=== PATIENT | female | born 1955 | race Caucasian/White ===

== ENCOUNTER 2018-12-27 13:38 | Emergency (ER) | payer MEDICARE, OTHER ==
[~2018-12-27] VITALS: Ht 157.5 cm; Wt 99.8 kg
--- OUTSIDE RECORDS SUMMARY | 2018-12-27 13:41 | XMS REPORT | Continuity of Care Document ---
Author Author [facility] Organization [facility] Address Unknown Phone Unavailable Care Team Providers Care Cook Station Name Role Phone [facility] Unavailable Unavailable Problems Problem Status Onset Date Classification Date Reported Comments Source Localized edema 08/01/2017 11/02/2017 [facility] [place] 782.3 - EDEMA Active 07/27/2017 [place] Pain in left leg 11/02/2017 [facility] [place] Pain in right leg 11/02/2017 [facility] Medications No Data Provided for This Section Allergies, Adverse Reactions, Alerts No Known Medication Allergies Immunizations No Data Provided for This Section Results No Data Provided for This Section Pathology Reports No Data Provided for This Section Diagnostic Reports Report Value Date Source Ext Lower Venous Doppler Bilat US EXAM: US BILATERAL LOWER EXTREMITY VENOUS DOPPLER DATE: 07/27/2017 2:19 PM [facility] INDICATION: - R60.9 Edema, unspecified, M79.605 Pain in left leg, M79.604 Pain in right leg. Bilateral lower leg swelling for 2 days with no trauma. Burning sensation with pitting edema. ADDITIONAL INFORMATION: None. COMPARISON: None. TECHNIQUE: Multiplanar grayscale, color Doppler and spectral Doppler ultrasound images of the bilateral lower extremity veins. FINDINGS: Right Thigh Veins: Common Femoral: Patent. Femoral (SFV): Patent. Popliteal: Patent. Proximal Greater Saphenous: Patent. Deep Femoral Veins: Patent. Right Calf Veins: Slightly limited visualization Paired Peroneal: Patent. Posterior Tibial Calf: Patent. Left Thigh Veins: Common Femoral: Patent. Femoral (SFV): Patent. Popliteal: Patent. Proximal Greater Saphenous: Patent. Deep Femoral Veins: Patent. Left Calf Veins: Slightly limited visualization Paired Peroneal: Patent. Posterior Tibial Calf: Patent. IMPRESSION: No deep venous thrombosis (DVT). Soft tissue edema is seen within the calves. Findings were discussed with Dr. Levi--Dao by telephone on 07/27/2017 at 1400 hours. 07/27/2017 [facility] Consultation Notes No Data Provided for This Section Discharge Summaries No Data Provided for This Section History and Physicals No Data Provided for This Section Vital Signs No Data Provided for This Section Encounters Location Location Details Encounter Type Encounter Number Reason For Visit Attending Provider ADM Date DC Date Status Source [facility] [id number] Non Physician 07/27/2017 07/28/2017 [facility] Procedures No Data Provided for This Section Assessment and Plan No Data Provided for This Section Plan of Care No Data Provided for This Section Social History Social History Date Source No data available for this section 07/28/2017 [facility] Family History No Data Provided for This Section Advance Directives No Data Provided for This Section Functional Status No Data Provided for This Section
--- OUTSIDE RECORDS SUMMARY | 2018-12-27 13:41 | XMS REPORT | Clinical Summary ---
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 Active glimepiride (AMARYL) 4 MG Take 4 mg by 0 tablet mouth daily before breakfast. Active metoprolol succinate XL Take 50 mg by 0 (TOPROL-XL) 50 mg 24 hr mouth daily. tablet Active insulin detemir U-100 Inject under 0 (LEVEMIR) 100 unit/mL the skin injection nightly. Active insulin lispro (HumaLOG) Inject 0-5 0 100 unit/mL injection Units under the skin 3 (three) times a day before meals. Active pravastatin (PRAVACHOL) Take 20 mg by 0 20 MG tablet mouth nightly. 06/06/2019 Active meloxicam (MOBIC) 15 mg Take 1 tablet 30 tablet 0 tabletIndications: Acute (15 mg total) 8 bilateral low back pain, by mouth with sciatica presence daily. unspecified, Degeneration of lumbar intervertebral disc, Pain of both hip joints, Trochanteric bursitis of both hips 06/05/2018 Discontinued meloxicam (MOBIC) 15 mg Take 1 tablet 30 tablet 0 tabletIndications: Acute (15 mg total) 8 bilateral low back pain, by mouth with sciatica presence daily. unspecified, Degeneration of lumbar intervertebral disc, Pain of both hip joints, Trochanteric bursitis of both hips Active Problems No known active problems Encounters Care Team Description Date Type Specialty Price Woodward MD Trochanteric bursitis of left hip (Primary Dx); Pain of left hip joint; Pain of right hip joint 08/07/2018 Office Visit Orthopedic Surgery Price Woodward MD Trochanteric bursitis of left hip (Primary Dx); Pain of left hip joint 07/05/2018 Office Visit Orthopedic Surgery Price Woodward MD Trochanteric bursitis of left hip (Primary Dx); Pain of left hip joint; Degeneration of lumbar intervertebral disc; Spondylolisthesis of lumbar region 06/12/2018 Office Visit Orthopedic Surgery Price Woodward MD Acute bilateral low back pain, with sciatica presence unspecified; Degeneration of lumbar intervertebral disc; Pain of both hip joints; Trochanteric bursitis of both hips 06/05/2018 Refill Orthopedic Surgery Price Woodward MD Degeneration of lumbar intervertebral disc (Primary Dx); SI (sacroiliac) pain; Spondylolisthesis of lumbar region; Trochanteric bursitis of left hip; Pain of left hip joint 05/28/2018 Office Visit Orthopedic Surgery Price Woodward MD Acute bilateral low back pain, with sciatica presence unspecified (Primary Dx); Degeneration of lumbar intervertebral disc; Pain of both hip joints; Trochanteric bursitis of both hips; Spondylolisthesis of lumbar region 05/07/2018 Office Visit Orthopedic Surgery after 12/26/2017 Family History Medical History Relation Name Comments Arthritis Mother Cancer Mother Heart disease Mother Relation Name Status Comments Mother Social History Date Tobacco Use Types Packs/Day Years Used Never Smoker Smokeless Tobacco: Never Used Alcohol Use Drinks/Week oz/Week Comments No Sex Assigned at Date Recorded Not on file Industry Job Start Date Occupation Not on file Not on file Not on file Travel End Travel History Travel Start No recent travel history available. Last Filed Vital Signs Time Taken Vital Sign Reading 05/07/2018 9:44 AM [employer] Blood Pressure 130/62 - Pulse - - Temperature - - Respiratory Rate - - Oxygen Saturation - - Inhaled Oxygen - Concentration 05/07/2018 9:44 AM [employer] Weight 99.8 kg (220 lb) 05/07/2018 9:44 AM [employer] Height 157.5 cm (5' 2") 05/07/2018 9:44 AM [employer] Body Mass Index 40.24 Plan of Treatment Health Maintenance Due Date Last Done Comments BREAST CANCER SCREENING 2003 COLONOSCOPY SCREENING 2003 SHINGLES VACCINES (#1) 2003 65+ PNEUMOCOCCAL VACCINE 2018 (1 of 2 - PCV13) INFLUENZA VACCINE 01/30/2019 Procedures Comments Procedure Name Priority Date/Time Associated Diagnosis [place] ARTHROCENTESIS Routine 08/07/2018 Trochanteric bursitis of ASPIR&/INJ MAJOR JT/BURSA 3:40 PM [employer] left hip W/O US Pain of left hip joint [place] ARTHROCENTESIS Routine 07/05/2018 Trochanteric bursitis of ASPIR&/INJ MAJOR JT/BURSA 10:10 AM [employer] left hip W/O US Pain of left hip joint [place] ARTHROCENTESIS Routine 06/12/2018 Trochanteric bursitis of ASPIR&/INJ MAJOR JT/BURSA 1:50 PM [employer] left hip W/O US Pain of left hip joint [place] INJECT TRIGGER POINT, Routine 05/28/2018 Degeneration of lumbar 1 OR 2 10:20 AM [employer] intervertebral disc SI (sacroiliac) pain Spondylolisthesis of lumbar region XR HIP 3-4 VIEWS Routine 05/07/2018 Pain of both hip joints BILATERAL 9:44 AM [employer] XR LUMBAR SPINE COMPLETE Routine 05/07/2018 Acute bilateral low back 4+ VW 9:44 AM [employer] pain, with sciatica presence unspecified after 12/26/2017 Results * Large Joint Arthrocentesis: hip, L greater trochanteric bursa (08/07/2018 3:40 PM [employer]) Narrative Performed At Price Woodward MD 08/12/20181:35 PM Large Joint Arthrocentesis: hip, L greater trochanteric bursa Consent given by: patient Supporting Documentation Indications: pain Procedure Details Ultrasound guided: no Platelet Rich Plasma Used: no PRP Used Location: hip - L greater trochanteric bursa Left side: Needle size: 25 G Approach: lateral Left hip medications administered: 1 mL lidocaine 10 mg/mL (1 %); 6 mg betamethasone acetate & sodium phosphate 6 mg/mL Patient tolerance: patient tolerated the procedure well with no immediate complications * Large Joint Arthrocentesis: hip, L greater trochanteric bursa (07/05/2018 10:10 AM [employer]) Narrative Performed At Price Woodward MD 07/08/20181:03 PM Large Joint Arthrocentesis: hip, L greater trochanteric bursa Consent given by: patient Supporting Documentation Indications: pain Procedure Details Ultrasound guided: no Platelet Rich Plasma Used: no PRP Used Location: hip - L greater trochanteric bursa Left side: Needle size: 25 G Approach: lateral Left hip medications administered: 1 mL lidocaine 10 mg/mL (1 %); 6 mg betamethasone acetate & sodium phosphate 6 mg/mL Patient tolerance: patient tolerated the procedure well with no immediate complications * Large Joint Arthrocentesis: hip, L greater trochanteric bursa (06/12/2018 1:50 PM [employer]) Narrative Performed At Price Woodward MD 06/17/20181:17 PM Large Joint Arthrocentesis: hip, L greater trochanteric bursa Consent given by: patient Supporting Documentation Indications: pain Procedure Details Ultrasound guided: no Platelet Rich Plasma Used: no PRP Used Location: hip - L greater trochanteric bursa Left side: Needle size: 25 G Approach: lateral Left hip medications administered: 1 mL lidocaine 10 mg/mL (1 %); 6 mg betamethasone acetate & sodium phosphate 6 mg/mL Patient tolerance: patient tolerated the procedure well with no immediate complications * 1 or 2 Trigger Point Injection: L sacral (05/28/2018 10:20 AM [employer]) Narrative Performed At Price Woodward MD 05/31/20183:03 PM 1 or 2 Trigger Point Injection: L sacral Date/Time: 05/31/2018 3:02 PM Performed by: Price Woodward MD Authorized by: Price Woodward MD Consent: Consent obtained:Verbal Consent given by:Patient Risks discussed:Allergic reaction, swelling and pain Indications: Indications:Pain relief Location: Therapeutic Trigger Point Injection:Single/multiple trigger point(s): 1-2 muscle groups Location: back Back location injected:L sacral Platelet Rich Plasma Used: no PRP Used EMG Guidance Used: no emg guidance used Left side: Left Sacral Medications administered: 6 mg betamethasone acetate & sodium phosphate 6 mg/mL; 1 mL lidocaine 10 mg/mL (1 %) Pre-procedure details: Neurovascular status: intact Skin preparation:Alcohol Procedure details: Topical anesthetic:Ethyl chloride Syringe type:Normal syringe Needle gauge:25 G Post-procedure details: Patient tolerance of procedure:Tolerated well, no immediate complications * XR Hip 3-4 Views Bilateral (05/07/2018 9:44 AM [employer]) Specimen Narrative Performed At [facility] and lateral left and right hips show mild joint line narrowing.The patient has calcification in her capsule adjacent to her right femoral neck. Performing Organization Address City/[facility] Phone Number [facility] [address] [place] [address] * XR Lumbar Spine Complete 4+ Vw (05/07/2018 9:44 AM [employer]) Specimen Narrative Performed At [facility], lateral and oblique x-rays of the lumbar spine shows marked narrowing between L4-5 with a first-degree degenerative spondylolisthesis at that level.She also has some mild narrowing of L5-S1.She does have anterior vertebral body endplate spurring of her upper lumbar vertebral bodies. Performing Organization Address City/State/[facility] Phone Number [employer] [address] [place] [address] after 12/26/2017 Insurance Type Payer Benefit Subscriber ID Effective Phone Address Plan / Dates Group Medicare MEDICARE MEDICARE xxxxxxxxxxx 2018-P [place], PART A AND resent [place] Commercial COMMERCIAL MISC MISC [id number] 2018-P COMMERCIAL resent Advance Directives Patient has advance care planning documents on file. For more information, madina diez contact: Naseem Ace [address] [place] [address]
--- OUTSIDE RECORDS SUMMARY | 2018-12-27 13:42 | XMS REPORT | Summary of Care ---
Author Author [facility] Outpatient Imaging [facility] Outpatient Imaging [facility] Address Unknown Phone Unavailable Encounter HQ Arnavntr_[id number](FIN) [id number] Date(s): 07/27/17 - 07/27/17 [facility] Outpatient Imaging [facility] [address] [facility], [address] [place] [phone] Encounter Diagnosis Localized edema (Final) - 07/31/17 Pain in left leg (Final) - Pain in right leg (Final) - Discharge Disposition: Home or Self Care Attending Physician: Ranjana Levi MD Referring Physician: Physician, Non Associated MD Vital Signs No data available for this section Problem List No data available for this section Allergies, Adverse Reactions, Alerts No data available for this section Medications No data available for this section Results No data available for this section Immunizations No data available for this section Procedures No data available for this section Social History No data available for this section Assessment and Plan No data available for this section
--- NOTE | 2018-12-27 15:12 | Diagnostic Imaging Report ---
EXAMINATION: PA and lateral views of the chest. COMPARISON: None CLINICAL HISTORY: Concern for pneumonia DISCUSSION: The lungs are well-inflated. Patchy and linear perihilar opacities without focal consolidation. No pleural effusion or pneumothorax. Borderline enlargement of the cardiac silhouette. Multilevel degenerative disc changes of the thoracic spine. IMPRESSION: Borderline cardiomegaly with perihilar interstitial opacities which may reflect edema or atypical infection. No consolidative pneumonia. Signed by: Dr. Felix Torres M.D. on 12/27/2018 3:09 PM
[2018-12-27 15:17] LABS: BILIRUBIN,URINE NEGATIVE (NEGATIVE); CLARITY,URINE CLEAR (CLEAR); COLOR,URINE YELLOW (YELLOW); KETONES,URINE NEGATIVE (NEGATIVE); LEUKOCYTE ESTERASE ,URINE NEGATIVE (NEGATIVE); NITRITE,URINE NEGATIVE (NEGATIVE); PROTEIN,URINE DIPSTICK 2+ (NEGATIVE); URINE UROBILINOGEN 0.2 mg/dL (0.2 - 1)
[2018-12-27 15:42] LABS: BACTERIA,URINE MODERATE /HPF; EPITHELIAL CELLS,URINE MANY /LPF
[2018-12-27 15:43] LABS: BASOPHILS # (AUTO) 0.1 (0.0-0.1); BASOPHILS % 0.4 % (0.0-1.0); EOSINOPHILS # (AUTO) 0.1 (0.0-0.4); EOSINOPHILS % 0.9 % (0.0-6.0); HEMOGLOBIN 13.1 g/dL (12.0-16.0); LYMPHOCYTES # (AUTO) 1.6 (1.0-3.2); LYMPHOCYTES % 10.2 % (18.0-39.1); MEAN CORPUSCULAR HGB CONC 33.6 g/dL (31-35); MEAN CORPUSCULAR VOLUME 86.5 fL (81-99); MONOCYTES % 6.4 % (4.4-11.3); NEUTROPHILS # (AUTO) 12.9 (2.1-6.9); PLATELET COUNT 287 x10e3/uL (140-360); RED BLOOD COUNT 4.51 x10e6/uL (3.6-5.1); RED CELL DISTRIBUTION WIDTH 14.3 % (11.7-14.4)
[2018-12-27 16:02] LABS: ALBUMIN 2.9 g/dL (3.5-5.0); ALBUMIN/GLOBULIN RATIO 0.6 (0.8-2.0); ANION GAP 17.5 mmol/L (8-16); CALCIUM 9.8 mg/dL (8.4-10.2); CREATININE, SERUM 2.01 mg/dL (0.57-1.11); POTASSIUM 3.5 mmol/L (3.5-5.1)
[2018-12-27 16:58] VITALS: BP 193/93
== END 2018-12-27 16:59 | disposition home or self-care (01) ==
LOC: ER 13:38
DX: J20.9 Acute bronchitis, unspecified (principal); Z88.1 Allergy status to other antibiotic agents; Z88.8 Allergy status to other drugs, medicaments and biological substances; I10 Essential (primary) hypertension; E11.9 Type 2 diabetes mellitus without complications
CPT/HCPCS: 36415; 71046; 80053; 81001; 85025; 87040; 99283

== ENCOUNTER 2020-06-18 13:30 | Emergency (ER) | payer MEDICARE, OTHER ==
[~2020-06-18] VITALS: Ht 157.5 cm; Wt 109.8 kg
[2020-06-18] MEDS ORDERED: PIPER-TAZ 3.375 GM 50 ML IV ONE (14:15)
[2020-06-18] MEDS ORDERED: SODIUM CHLORIDE FLUSH 10 ML SYR INJ PRN (14:15)
[2020-06-18] MEDS ORDERED: VANCOMYCIN 1GM/NS 250 ML 250 ML IV ONE (14:30)
[2020-06-18] MEDS ORDERED: VANCOMYCIN 1GM/NS 250 ML 250 ML ONE (16:12)
[2020-06-18] MEDS ORDERED: PIPER-TAZ 3.375 GM 50 ML ONE (16:13)
[2020-06-18] MEDS ORDERED: HYDROCODONE/APAP 5MG-325MG TAB PO ONE (16:15)
[2020-06-18] MEDS ORDERED: METHYLPREDNISOLONE SOD SUCC 125 MG/2ML VIAL IV ONE (16:45)
[2020-06-18] MEDS ORDERED: CYCLOBENZAPRINE5 MG PO (17:42)
[2020-06-18] MEDS ORDERED: PREDNISONE20 MG PO ×2 (17:42→17:54)
[2020-06-18] MEDS ORDERED: CLINDAMYCIN HC300 MG PO (17:54)
[2020-06-18] MEDS ORDERED: AUGMENTIN 500-1 EACH PO (17:54)
[2020-06-18] MEDS ORDERED: METHYLPREDNISOLONE SOD SUCC 125 MG/2ML VIAL ONE (17:57)
[2020-06-18 19:07] VITALS: BP 159/64
== END 2020-06-18 19:19 | disposition home or self-care (01) ==
LOC: FSED 13:56
DX: L03.116 Cellulitis of left lower limb (principal); L03.115 Cellulitis of right lower limb; I12.9 Hypertensive chronic kidney disease with stage 1 through stage 4 chronic kidney disease, or unspecified chronic kidney disease; E11.22 Type 2 diabetes mellitus with diabetic chronic kidney disease; N18.9 Chronic kidney disease, unspecified; M10.9 Gout, unspecified
CPT/HCPCS: 71046; 80053; 81003; 85025; 87040; 99283; J2543; J2930; J3370

== ENCOUNTER 2021-08-04 11:16 | Emergency (ER) | payer MEDICARE, OTHER ==
[~2021-08-04] VITALS: Ht 157.5 cm; Wt 99.6 kg
[~2021-08-04 11:16] MED LIST: AUGMENTIN 500-1 EACH PO; CLINDAMYCIN HC300 MG PO; CYCLOBENZAPRINE5 MG PO; PREDNISONE20 MG PO
[2021-08-04] MEDS ORDERED: ALLOPURINOL100 MG PO (11:38)
[2021-08-04] MEDS ORDERED: NEURONTIN100 MG PO (11:38)
[2021-08-04] MEDS ORDERED: VICODIN HP 10-1 EAC1 PO (11:38)
[2021-08-04] MEDS ORDERED: METOPROLOL SUCC25 MG PO (11:38)
[2021-08-04] MEDS ORDERED: V GO (11:38)
[2021-08-04] MEDS ORDERED: LISINOPRIL10 MG PO (11:38)
[2021-08-04] MEDS ORDERED: [UNRECOGNIZED DRUG - OTHER] (11:38)
[2021-08-04] MEDS ORDERED: CALCIUM ACETAT667 M1 PO (11:38)
[2021-08-04] MEDS ORDERED: HUMALOG100 UNIT/1 (11:38)
[2021-08-04] MEDS ORDERED: PROBIOTIC & AC1 EACH PO (11:38)
[2021-08-04] MEDS ORDERED: GLIMEPIRIDE2 MG PO (11:38)
[2021-08-04] MEDS ORDERED: BUMETANIDE2 MG PO (11:38)
[2021-08-04] MEDS ORDERED: PLAQUENIL200 MG PO (11:38)
[2021-08-04] MEDS ORDERED: CALCITRIOL0.25 MCG PO (11:38)
== END 2021-08-04 13:18 | disposition home or self-care (01) ==
LOC: FSED 11:20
DX: S00.83XA Contusion of other part of head, initial encounter (principal); R51.9 Headache, unspecified; M25.531 Pain in right wrist; W01.0XXA Fall on same level from slipping, tripping and stumbling without subsequent striking against object, initial encounter; Y92.89 Other specified places as the place of occurrence of the external cause; I10 Essential (primary) hypertension; E11.9 Type 2 diabetes mellitus without complications; N18.9 Chronic kidney disease, unspecified; M10.9 Gout, unspecified
CPT/HCPCS: 70450; 99283

== ENCOUNTER 2021-08-13 20:55 | Emergency (ER) | payer MEDICARE, OTHER ==
[~2021-08-13] VITALS: Ht 157.5 cm; Wt 98.0 kg
[~2021-08-13 20:55] MED LIST changes: +ALLOPURINOL100 MG PO; +BUMETANIDE2 MG PO; +CALCITRIOL0.25 MCG PO; +CALCIUM ACETAT667 M1 PO; +GLIMEPIRIDE2 MG PO; +HUMALOG100 UNIT/1; +LISINOPRIL10 MG PO; +METOPROLOL SUCC25 MG PO; +NEURONTIN100 MG PO; +PLAQUENIL200 MG PO; +PROBIOTIC & AC1 EACH PO; +V GO; +VICODIN HP 10-1 EAC1 PO; +[UNRECOGNIZED DRUG - OTHER]
[2021-08-13] MEDS ORDERED: ACETAMINOPHEN500 MG PO (22:17)
[2021-08-13] MEDS ORDERED: ULTRAM 50MG50 MG PO (22:17)
[2021-08-13 22:35] VITALS: BP 177/80
== END 2021-08-13 22:35 | disposition home or self-care (01) ==
LOC: FSED 21:02
DX: M79.672 Pain in left foot (principal); L97.429 Non-pressure chronic ulcer of left heel and midfoot with unspecified severity; I10 Essential (primary) hypertension; N18.9 Chronic kidney disease, unspecified; M10.9 Gout, unspecified; M54.9 Dorsalgia, unspecified; G89.29 Other chronic pain
CPT/HCPCS: 99283